=== PATIENT | female | born 1985 | race Caucasian/White ===

== ENCOUNTER 2019-01-06 17:14 | Emergency (ER) | payer MEDICAID ==
[~2019-01-06] VITALS: Ht 162.6 cm; Wt 139.0 kg
[~2019-01-06 17:14] MED LIST: CITA20TA28 PO; ZOF4T PO
[2019-01-06 20:08] VITALS: BP 149/81
[2019-01-06 20:08] LABS: BASOPHILS % (AUTO) 0.6 % (0-1); EOSINOPHILS # (AUTO) 0.2 X10'3 (0-0.9); EOSINOPHILS % (AUTO) 2.1 % (0-6); HEMATOCRIT 43.6 % (35.0-45.0); HEMOGLOBIN 14.2 g/dl (12.0-16.0); LYMPHOCYTES # (AUTO) 3.2 X10'3 (1.1-4.8); LYMPHOCYTES % (AUTO) 43.3 % (21-51); MEAN CORPUSCULAR HEMOGLOBIN 25.8 PG (27.0-31.0); MEAN CORPUSCULAR HGB CONC 32.6 g/dL (33.0-36.5); MEAN CORPUSCULAR VOLUME 79.2 FL (78-98); MEAN PLATELET VOLUME 8.5 FL (7.4-10.4); MONOCYTES # (AUTO) 0.5 X10'3 (0-0.9); MONOCYTES % (AUTO) 6.7 % (2-12); NEUTROPHILS # (AUTO) 3.5 X10'3 (1.8-7.7); NEUTROPHILS % (AUTO) 47.3 % (42-75); PLATELET COUNT 255 X10'3 (140-440); RED CELL DISTRIBUTION WIDTH 14.5 % (11.5-14.5); WHITE BLOOD COUNT 7.4 X10'3 (4.5-11.0)
[2019-01-06 20:29] LABS: BILIRUBIN,TOTAL 0.2 MG/DL (0.1-1.0); BLOOD UREA NITROGEN 10 MG/DL (7-18); BUN/CREATININE RATIO 10.6 (6.6-38.0); CALCIUM 8.4 MG/DL (8.5-10.1); CHLORIDE 108 MMOL/L (99-107); CREATININE 0.94 MG/DL (0.40-0.90); GLUCOSE 102 MG/DL (70-104); POTASSIUM 3.7 MMOL/L (3.5-5.1); SODIUM 143 MMOL/L (135-145); eGFR 69 ML/MIN
[2019-01-06 20:30] LABS: ALANINE AMINOTRANSFERASE 32 U/L (12-78); ALBUMIN 3.6 G/DL (3.4-5.0); ALBUMIN/GLOBULIN RATIO 0.8 (1.1-1.5); ALKALINE PHOSPHATASE 119 IU/L (46-116); ANION GAP 12 (8-16); ASPARTATE AMINO TRANSFERASE 15 U/L (10-37); TOTAL CARBON DIOXIDE 23.4 MMOL/L (24-32)
--- NOTE | 2019-01-06 20:37 | NUR ---
VASC CALLED BACK AT 20:35 WILL BE RIGHT IN
== END 2019-01-06 21:50 | disposition home or self-care (01) ==
LOC: ER 17:15
DX: T81.89XA Other complications of procedures, not elsewhere classified, initial encounter (principal); S70.02XA Contusion of left hip, initial encounter; R07.89 Other chest pain; Z79.899 Other long term (current) drug therapy; Z90.49 Acquired absence of other specified parts of digestive tract; X58.XXXA Exposure to other specified factors, initial encounter; Y93.89 Activity, other specified; Y92.89 Other specified places as the place of occurrence of the external cause; Y99.8 Other external cause status; Y82.8 Other medical devices associated with adverse incidents
CPT/HCPCS: 36415; 80053; 85025; 85610; 93971; 99284

== ENCOUNTER → 2023-07-21 | Outpatient (CLI) | payer MEDICAID | END | disposition home or self-care (01) | LOC: RAD 08:53 | PROVIDERS: ATTEND Nurse Practitioner | DX: E04.2 Nontoxic multinodular goiter (principal); Z86.39 Personal history of other endocrine, nutritional and metabolic disease | CPT/HCPCS: 76536 ==